=== PATIENT | male | born 1955 | race American Indian/Alaskan Native ===

== ENCOUNTER 2018-02-23 20:36 | Emergency (ER) | payer OTHER ==
[2018-02-23] MEDS ORDERED: NORCO 5/325 PO ONE (21:40)
[2018-02-23] MEDS ORDERED: NORCO 5/325 ONE (21:47)
[2018-02-24] MEDS ORDERED: MOTRIN PO ONE (00:32)
--- NOTE | 2018-02-24 00:37 | Emergency Department Report ---
ED Fall HPI - General Chief Complaint: Back Pain/Injury Stated Complaint: BACK PAIN S/P FALL Time Seen by Provider: 02/24/18 00:31 Source: patient Mode of arrival: Ambulatory - History of Present Illness Initial Comments: 62-year-old -[place] male comes to the emergency room complaint of right -sided lower back pain status post ground level fall on Thursday. Patient reports she has increased pain since then. He denies hitting his head no loss of consciousness no dizziness weakness. It was noted in triage the patient was very guarded it appear uncomfortable. Patient point atypical little white pill and he reports it was a muscle relaxant prior to arrival. Patient reports that did not relieve his pain either. Patient complains that the pain is worse with movement and deep breath. MD Complaint: fall -: days(s) (4) Fall From: standing Fall Witnessed: no Place Fall Occurred: home Loss of Consciousness: none Prolonged Down Time?: no Symptoms Prior to Fall: none Severity scale (0 -10): 10 Quality: sharp, stabbing Context: tripped/slipped - Related Data Previous Rx's Medication Instructions Recorded Last Taken Type AtorvaSTATin [Lipitor] 20 mg PO QHS #30 tablet 01/22/16 Unknown Rx Famotidine [Pepcid] 20 mg PO BID #30 tablet 01/22/16 Unknown Rx Lisinopril [Zestril TAB] 20 mg PO QDAY #30 tablet 01/22/16 Unknown Rx Ibuprofen [Motrin 600 MG tab] 600 mg PO Q8H PRN 10 Days #30 02/24/18 Unknown Rx tablet Allergies Allergy/AdvReac Type Severity Reaction Status Date / Time No Known Allergies Allergy Verified 01/13/16 20:20 ED Review of Systems ROS: Stated complaint: BACK PAIN S/P FALL Other details as noted in HPI Constitutional: denies: chills, fever Eyes: denies: eye pain, eye discharge, vision change ENT: denies: ear pain, throat pain Respiratory: denies: cough, shortness of breath, wheezing Cardiovascular: denies: chest pain, palpitations Endocrine: no symptoms reported Gastrointestinal: denies: abdominal pain, nausea, diarrhea Genitourinary: denies: urgency, dysuria Musculoskeletal: back pain Skin: denies: rash, lesions Neurological: denies: headache, weakness, paresthesias Psychiatric: denies: anxiety, depression Hematological/Lymphatic: denies: easy bleeding, easy bruising ED Past Medical Hx - Past Medical History Previous Medical History?: Yes Hx Hypertension: Yes Hx CVA: Yes (02/2016) Hx COPD: Yes Additional medical history: GABBY - Surgical History Past Surgical History?: No Additional Surgical History: GABBY - Social History Smoking Status: Never Smoker Substance Use Type: None - Medications Home Medications: Home Medications Medication Instructions Recorded Confirmed Last Taken Type AtorvaSTATin [Lipitor] 20 mg PO QHS #30 tablet 01/22/16 Unknown Rx Famotidine [Pepcid] 20 mg PO BID #30 tablet 01/22/16 Unknown Rx Lisinopril [Zestril TAB] 20 mg PO QDAY #30 tablet 01/22/16 Unknown Rx Ibuprofen [Motrin 600 MG tab] 600 mg PO Q8H PRN 10 Days #30 02/24/18 Unknown Rx tablet ED Physical Exam - General Limitations: No Limitations General appearance: alert, in no apparent distress - ENT ENT exam: Present: mucous membranes moist - Respiratory Respiratory exam: Present: normal lung sounds bilaterally. Absent: respiratory distress - Cardiovascular Cardiovascular Exam: Present: regular rate, normal rhythm. Absent: systolic murmur, diastolic murmur, rubs, gallop - GI/Abdominal GI/Abdominal exam: Present: soft, normal bowel sounds - Back Exam Back exam: Present: paraspinal tenderness - Neurological Exam Neurological exam: Present: alert, oriented X3 - Psychiatric Psychiatric exam: Present: normal affect, normal mood - Skin Skin exam: Present: warm, dry, intact, normal color. Absent: rash ED Course Vital Signs 02/23/18 02/23/18 21:03 21:46 Temperature 99.3 F Pulse Rate 79 Respiratory 18 18 Rate Blood Pressure 183/116 O2 Sat by Pulse 97 Oximetry ED Medical Decision Making - Radiology Data Radiology results: report reviewed, image reviewed FINAL REPORT EXAM: XR RIBS UNI W PA CHEST 3+V RT HISTORY: fall with rib pain COMPARISON: None available. FINDINGS: Single frontal view of the chest and four views of right ribs obtained. Heart normal in size. No pneumothorax. There is indeterminate nodule projecting of the left perihilar region measuring 1.6 centimeters. Remaining lungs are clear. Right ribs are grossly intact. No step-off deformity. No discrete fracture line. IMPRESSION: Right ribs are grossly intact. 1.6 centimeter indeterminate left perihilar nodule. Further evaluation by chest CT suggested on a nonemergent basis if not worked up previously. Transcribed By: LMA Dictated By: ANEL SALGUERO MD Electronically Authenticated By: ANEL SALGUERO MD Signed Date/Time: 02/24/1854 DD/ TD/TT: 02/24/1854 - Medical Decision Making Patient has been evaluated by this provider fast track. Patient has been given ibuprofen and [place] for pain management. Chest x-ray with rib series came back with no rib fractures but there is a 1.6 cm indeterminate left perihilar nodule. Further workup by chest CT suggested on a nonemergent basis if not worked up previously. Will discharge patient on ibuprofen for pain management. With the diagnoses of a fall and costochondritis or chest wall tenderness Critical care attestation.: If time is entered above; I have spent that time in minutes in the direct care of this critically ill patient, excluding procedure time. ED Disposition Clinical Impression: Rib tenderness, Lung nodule < 6cm on CT Fall Qualifiers: Encounter type: initial encounter Qualified Code(s): W19.XXXA - Unspecified fall, initial encounter Disposition: - TO HOME OR SELFCARE Is pt being admited?: No Does the pt Need Aspirin: No Condition: Stable Instructions: Chest Pain (ED), Pulmonary Nodules (ED) Additional Instructions: Please take pain medication as prescribed. Please follow up with her primary care provider for further evaluation of your lung nodule. Prescriptions: Ibuprofen [Motrin 600 MG tab] 600 mg PO Q8H PRN 10 Days #30 tablet PRN Reason: Pain , Severe (7-10) Referrals: PRIMARY CARE, [Primary Care Provider] - 3-5 Days MARGARET VEGA MD [Referring] - 3-5 Days KAIDEN SMITH MD [Referring] - 3-5 Days
--- NOTE | 2018-02-24 01:00 | XRay Report ---
FINAL REPORT EXAM: XR RIBS UNI W PA CHEST 3+V RT HISTORY: fall with rib pain COMPARISON: None available. FINDINGS: Single frontal view of the chest and four views of right ribs obtained. Heart normal in size. No pneumothorax. There is indeterminate nodule projecting of the left perihilar region measuring 1.6 centimeters. Remaining lungs are clear. Right ribs are grossly intact. No step-off deformity. No discrete fracture line. IMPRESSION: Right ribs are grossly intact. 1.6 centimeter indeterminate left perihilar nodule. Further evaluation by chest CT suggested on a nonemergent basis if not worked up previously.
[2018-02-24 04:01] VITALS: BP 166/101
== END 2018-02-24 01:41 | disposition home or self-care (01) ==
LOC: ED 20:36
DX: R91.1 Solitary pulmonary nodule (principal); M54.5 Low back pain; R07.81 Pleurodynia; I10 Essential (primary) hypertension; J44.9 Chronic obstructive pulmonary disease, unspecified; Z86.73 Personal history of transient ischemic attack (TIA), and cerebral infarction without residual deficits; W01.0XXA Fall on same level from slipping, tripping and stumbling without subsequent striking against object, initial encounter; Y93.89 Activity, other specified; Y92.89 Other specified places as the place of occurrence of the external cause; Y99.8 Other external cause status
CPT/HCPCS: 99283